=== PATIENT | male | born 1970 | race American Indian/Alaskan Native ===

== ENCOUNTER 2018-08-18 19:32 | Emergency (ER) | payer MEDICAID ==
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
[2018-08-18 21:22] LABS: Basophils # (Auto) 0.1 K/mm3 (0.0-0.1); Basophils % (Auto) 1.3 % (0.0-1.8); Eosinophils % (Auto) 0.4 % (0.0-4.3); Hematocrit 40.3 % (35.5-45.6); Hemoglobin 13.5 gm/dl (11.8-15.2); Lymphocytes # (Auto) 2.9 K/mm3 (1.2-5.4); Mean Corpuscular HGB Conc 34 % (32-34); Mean Corpuscular Hemoglobin 31 pg (28-32); Mean Corpuscular Volume 93 fl (84-94); Monocytes # (Auto) 0.6 K/mm3 (0.0-0.8); Monocytes % (Auto) 9.8 % (0.0-7.3); Platelet Count 197 K/mm3 (140-440); Red Blood Count 4.33 M/mm3 (3.65-5.03); Red Cell Distribution Width 14.6 % (13.2-15.2)
--- NOTE | 2018-08-18 21:23 | Cat Scan Report ---
FINAL REPORT EXAM: CT HEAD/BRAIN WO CON HISTORY: head injury TECHNIQUE: 2.5 millimeter axial images from the skullbase to the vertex. Comparison: None FINDINGS: There is no evidence of an acute intracranial process, intracranial hemorrhage or mass effect. The ventricles are normal size. The visualized portions of the orbits, paranasal and mastoid sinuses are notable for deformity of the medial wall of the left orbit without evidence of acute change in the adjacent ethmoid sinus. This may represent sequela of previous medial orbital wall fracture or may be congenital in nature. There is no evidence of acute fracture. IMPRESSION: 1. No evidence of an acute intracranial process, intracranial hemorrhage or mass effect. 2. Deformity medial wall left orbit that may represent sequela of previous medial orbital wall fracture or may be congenital in nature. 3. No evidence of acute fracture.
[2018-08-18 21:37] LABS: Bilirubin,Urine NEG (Negative); Blood,Urine NEG (Negative); Color,Urine Yellow (Yellow); Mucus,Urine FEW /HPF; Protein,Urine <15 mg/dL mg/dL (Negative)
[2018-08-18 21:39] LABS: BUN/Creatinine Ratio 9; Blood Urea Nitrogen 10 mg/dL (9-20); Calcium 9.6 mg/dL (8.4-10.2); Hemolysis Index 5
[2018-08-18 21:54] LABS: Amphetamine Screen,Urine PRESUMPTIVE NEGATIVE; Benzodiazepines Screen,Urine PRESUMPTIVE NEGATIVE; Cannabinoid Screen,Urine PRESUMPTIVE NEGATIVE; Cocaine Screen,Urine PRESUMPTIVE NEGATIVE; Methadone Screen,Urine PRESUMPTIVE NEGATIVE; Opiate Screen,Urine PRESUMPTIVE NEGATIVE
[2018-08-19] MEDS ORDERED: TYLENOL PO ONE (01:10)
[2018-08-19 02:08] VITALS: BP 137/86
== END 2018-08-19 03:00 | disposition home or self-care (01) ==
LOC: ED 19:32
DX: F31.9 Bipolar disorder, unspecified (principal); F20.9 Schizophrenia, unspecified; I11.0 Hypertensive heart disease with heart failure; F17.200 Nicotine dependence, unspecified, uncomplicated
CPT/HCPCS: 36415; 70450; 80048; 80307; 81001; 84484; 85025; 93005; 93010; 99284; G0480; 80320

== ENCOUNTER 2018-08-20 05:51 | Emergency (ER) | payer MEDICAID ==
[2018-08-20 06:11] VITALS: BP 123/82
== END 2018-08-20 07:41 | disposition left against medical advice (07) ==
LOC: ED 05:51
DX: R41.82 Altered mental status, unspecified (principal); Z53.21 Procedure and treatment not carried out due to patient leaving prior to being seen by health care provider

== ENCOUNTER 2022-03-24 02:56 | Emergency (ER) | payer MEDICAID ==
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
[2022-03-24 04:38] LABS: Hematocrit 45.8 % (35.5-45.6); Mean Corpuscular HGB Conc 33 % (32-34); Mean Corpuscular Volume 94 fl (84-94); Platelet Count 289 K/mm3 (140-440); Red Cell Distribution Width 14.7 % (13.2-15.2)
[2022-03-24 04:58] LABS: BUN/Creatinine Ratio 12; Blood Urea Nitrogen 12 mg/dL (9-20); Hemolysis Index 9
[2022-03-24 05:33] LABS: Basophils % (Manual) 0 % (0.0-1.8); Eosinophils % (Manual) 0 % (0.0-4.3); Total Cells Counted 100
[2022-03-24 05:34] LABS: Large Platelets Few; Platelet Estimate Cons
[2022-03-24 05:52] LABS: Bilirubin,Urine SM (Negative); Blood,Urine NEG (Negative); Color,Urine Amber (Yellow); Mucus,Urine 3+ /HPF; WBC,Urine < 1.0 /HPF (0.0-6.0)
[2022-03-24 05:54] LABS: Amphetamine Screen,Urine Negative; Benzodiazepines Screen,Urine Negative; Cannabinoid Screen,Urine Negative; Cocaine Screen,Urine Negative; Methadone Screen,Urine Negative; Opiate Screen,Urine Negative
[2022-03-24 05:57] LABS: Ictotest,Urine Positive (Negative)
[2022-03-24] MEDS ORDERED: IBUPROFEN 800 MG TAB PO ONE (06:53)
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
[2022-03-24] MEDS ORDERED: NON-FORMULARY EACH (Buspirone Hcl [Buspirone] 15 MG Tablet) PO SCH (11:00)
[2022-03-24] MEDS: DIVALPROEX DR 250 MG TAB PO SCH ×2 (11:08→22:06)
[2022-03-24] MEDS: QUEtiapine 100 MG TAB PO SCH ×2 (11:08→22:00)
[2022-03-24] MEDS ORDERED: busPIRone 5 MG TAB PO SCH (22:00)
[2022-03-24] MEDS ORDERED: busPIRone 10 MG TAB PO SCH (22:00)
--- NOTE | 2022-03-25 09:05 | Progress Note ---
Subjective - Reason for Consult Consult date: 03/25/22 Reason for consult: psychosis - Chief Complaint Chief complaint: Per nurse note: Pt was alert and oriented x2-3, visible on the unit. Pt was seen responding to internal stimuli, talking to self and to other people who are not there. Pt was compliant with his scheduled medications. Pt ate all his meals. The patient was seen today. He is loud, hyperverbal and his speech is pressured. He is having flight of ideas. The nursing staff says the patient has been talking non-stop. He is difficult to follow and at times talking nonsensically. He says he's "doing alright" when asked. he says "it's too much going on in my house." The patient then starts talking about "when it's time for a human to leave out this world, only God knows. But write this down, because you can write a book." He tells me that his leg does not bend the way it's supposed to. The patient says "I remember you. I seen you on t.v. Some of these other folks I seen on t.v. too." He denies SI/HI. He then says "it doesn't make no difference if I live or . I can leave today." Will adjust the patient's medications. REVIEW OF SYSTEMS Constitutional: Negative for weight loss ENT: Negative for stridor Respiratory: Negative for cough or hemoptysis All other systems reviewed and are negative MENTAL STATUS EXAMINATION General Appearance and Behavior: Age appropriate, good hygiene, wearing appropriate clothes. anxious, cooperative Cooperation: Cooperative Psychomotor Behavior: Psychomotor normal Mood: not good Affect and affective range: congruent with stated mood Thought Process: illogical, flight of ideas Thought Content: hallucinations, delusions Speech: pressured, hyperverbal Suicidal Ideation: Unclear Homicidal Ideation: Denies Hallucinations: A/V Delusions: None elicited Impulse Control: Limited Insight and Judgment: Limited insight and fair judgment Memory: Limited Attention: attentive Orientation: a/o x 3 Assessment (1) Schizoaffective Disorder Treatment Plan Increase Seroquel 150mg po BID Increase Buspar 15mg po TID Increase Depakote DR 250mg po TID Start Trazodone 75mg po qhs Medical: per primary Disposition: Recommend acute psychiatric inpatient treatment. Will follow. Thanks Case staffed with Dr. Saul Mental Status Exam - Vital signs Last Vital Signs Temp 98.5 F 03/24/22 04:06 Pulse 66 03/24/22 04:06 Resp 16 03/24/22 04:06 BP 128/83 03/24/22 04:06 Pulse Ox 100 03/24/22 19:00
[2022-03-25] MEDS ORDERED: QUEtiapine 100 MG TAB PO SCH (09:11)
[2022-03-25] MEDS: QUEtiapine 100 MG TAB PO SCH ×2 (10:26→22:48)
[2022-03-25] MEDS: QUEtiapine 25 MG TAB PO SCH ×2 (10:26→22:48)
--- NOTE | 2022-03-25 12:36 | Emergency Department Report ---
Blank Doc - Documentation Documentation: Chart reviewed 51-year-old male with schizoaffective disorder currently on a 1013. Currently awaiting placement. Medication adjusted by mental health nurse practitioner. Vital signs reviewed
[2022-03-25] MEDS ORDERED: busPIRone 10 MG TAB PO SCH (14:00)
[2022-03-25] MEDS: DIVALPROEX DR 250 MG TAB PO SCH ×2 (15:47→20:06)
[2022-03-25] MEDS: busPIRone 5 MG TAB PO SCH ×2 (15:47→20:06)
[2022-03-25] MEDS ORDERED: ZIPRASIDONE MESYLATE 20 MG VIAL IM ONE (19:14)
[2022-03-25] MEDS ORDERED: traZODone 50 MG TAB PO SCH (22:00)
[2022-03-26] MEDS ORDERED: ACETAMINOPHEN 500 MG TAB PO ONE (00:45)
[2022-03-26] MEDS: DIVALPROEX DR 250 MG TAB PO SCH (08:34)
[2022-03-26] MEDS: busPIRone 5 MG TAB PO SCH (08:34)
[2022-03-26 09:06] VITALS: BP 146/86
[2022-03-26] MEDS: QUEtiapine 100 MG TAB PO SCH (10:03)
[2022-03-26] MEDS: QUEtiapine 25 MG TAB PO SCH (10:03)
--- NOTE | 2022-03-26 10:45 | Progress Note ---
Subjective - Reason for Consult Consult date: 03/26/22 Reason for consult: delusional - Chief Complaint Chief complaint: The patient was seen today. He is calm, and cooperative. He is a lot less talkative today. The patient asks if he could go home and states "ma'am I feel much better today." He says "I have an appointment on April 12 at [facility] for my mental health." He denies SI/HI or hallucinations of any kind. The nursing staff states the patient has been calm and cooperative. REVIEW OF SYSTEMS Constitutional: Negative for weight loss ENT: Negative for stridor Respiratory: Negative for cough or hemoptysis All other systems reviewed and are negative MENTAL STATUS EXAMINATION General Appearance and Behavior: Age appropriate, good hygiene, wearing appropriate clothes. calm, cooperative, polite Cooperation: Cooperative Psychomotor Behavior: Psychomotor normal Mood: much better Affect and affective range: congruent with stated mood Thought Process: logical Thought Content: None Speech: Normal tone and pace Suicidal Ideation: Denies Homicidal Ideation: Denies Hallucinations: Denies Delusions: None elicited Impulse Control: Limited Insight and Judgment: Limited insight and fair judgment Memory: Limited Attention: attentive Orientation: a/o x 3 Assessment (1) Schizoaffective Disorder Treatment Plan d/c 1013 Seroquel 150mg po BID Buspar 15mg po TID Depakote DR 250mg po TID Trazodone 75mg po qhs Medical: per primary Disposition: Do not recommend acute psychiatric inpatient treatment. The patient understands if SI/HI or any fear of endangerment arise he is to seek immediate assistance [employer] Operator to give all necessary resources The patient to follow up with outpatient psych in 7 to 14 days upon discharge Will sign off. Thanks Case staffed with Dr. Saul Mental Status Exam - Vital signs Last Vital Signs Temp 98.2 F 03/26/22 09:05 Pulse 63 03/26/22 09:05 Resp 18 03/26/22 09:05 BP 146/86 03/26/22 09:05 Pulse Ox 98 03/26/22 09:06
== END 2022-03-26 12:28 | disposition home or self-care (01) ==
LOC: ED 02:56
DX: F29 Unspecified psychosis not due to a substance or known physiological condition (principal); I11.0 Hypertensive heart disease with heart failure; I50.9 Heart failure, unspecified; F17.200 Nicotine dependence, unspecified, uncomplicated; Z79.899 Other long term (current) drug therapy; Z20.822 Contact with and (suspected) exposure to COVID-19
CPT/HCPCS: 36415; 80048; 80307; 81001; 85007; 85025; 99284; J3486; U0003; 80320; 96372; G0480

== ENCOUNTER 2022-03-27 01:18 | Emergency (ER) | payer MEDICAID ==
[2022-03-27 02:19] LABS: Bilirubin,Urine NEG (Negative); Blood,Urine NEG (Negative); Color,Urine Colorless (Yellow); Protein,Urine <15 mg/dL mg/dL (Negative); Urobilinogen,Urine < 2.0 mg/dL (<2.0)
[2022-03-27 02:45] LABS: RBC,Urine < 1.0 /HPF (0.0-6.0); WBC,Urine < 1.0 /HPF (0.0-6.0)
[2022-03-27 02:47] LABS: Amphetamine Screen,Urine PRESUMPTIVE NEGATIVE; Benzodiazepines Screen,Urine PRESUMPTIVE NEGATIVE; Cannabinoid Screen,Urine PRESUMPTIVE NEGATIVE; Cocaine Screen,Urine PRESUMPTIVE NEGATIVE; Methadone Screen,Urine PRESUMPTIVE NEGATIVE; Opiate Screen,Urine PRESUMPTIVE NEGATIVE
[2022-03-27 04:18] LABS: Basophils # (Auto) 0.1 K/mm3 (0.0-0.1); Basophils % (Auto) 1.2 % (0.0-1.8); Eosinophils % (Auto) 0.7 % (0.0-4.3); Hematocrit 42.1 % (35.5-45.6); Lymphocytes # (Auto) 2.9 K/mm3 (1.2-5.4); Lymphocytes % (Auto) 48.5 % (13.4-35.0); Mean Corpuscular HGB Conc 33 % (32-34); Mean Corpuscular Volume 94 fl (84-94); Monocytes # (Auto) 0.5 K/mm3 (0.0-0.8); Monocytes % (Auto) 8.9 % (0.0-7.3); Red Blood Count 4.51 M/mm3 (3.65-5.03); Red Cell Distribution Width 14.7 % (13.2-15.2)
[2022-03-27 04:27] LABS: Platelet Count 214 K/mm3 (140-440)
[2022-03-27 04:30] LABS: BUN/Creatinine Ratio 16; Blood Urea Nitrogen 13 mg/dL (9-20); Calcium 8.9 mg/dL (8.4-10.2); Hemolysis Index 6
--- NOTE | 2022-03-27 09:28 | Emergency Department Report ---
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 [Primary Care Provider] - 3-5 Days
[2022-03-27 10:11] LABS: Hematocrit 41.5 % (35.5-45.6); Hemoglobin 13.8 gm/dl (11.8-15.2); Mean Corpuscular HGB Conc 33 % (32-34); Mean Corpuscular Volume 93 fl (84-94); Platelet Count 219 K/mm3 (140-440); Red Blood Count 4.45 M/mm3 (3.65-5.03); Red Cell Distribution Width 14.6 % (13.2-15.2)
[2022-03-27 10:13] LABS: BUN/Creatinine Ratio 15; Blood Urea Nitrogen 12 mg/dL (9-20); Calcium 9.5 mg/dL (8.4-10.2); Hemolysis Index 13
--- NOTE | 2022-03-27 11:08 | Progress Note ---
Subjective - Reason for Consult Consult date: 03/27/22 Reason for consult: MHE - Chief Complaint Chief complaint: The patient was seen today. He was treated and cleared by psych after several days. At that time the patient expressed feeling better. He states he filled his scripts but didn't start his medication. He says "I dropped them off at [facility]." The patient appears to be dissatisfied with his living situation. The patient says "I have problems. People are coming in my house." The patient also says he doesn't like his landlord, his brother or his brother's . He denies SI/HI or hallucinations of any kind. He says "nothing like that, but I don't understand what's going on at my house." REVIEW OF SYSTEMS Constitutional: Negative for weight loss ENT: Negative for stridor Respiratory: Negative for cough or hemoptysis All other systems reviewed and are negative MENTAL STATUS EXAMINATION General Appearance and Behavior: Age appropriate, good hygiene, wearing appropriate clothes. cooperative Cooperation: Cooperative Psychomotor Behavior: Psychomotor normal Mood: not good Affect and affective range: congruent with stated mood Thought Process: circumstantial Thought Content: None Speech: rambling at time Suicidal Ideation: Denies Homicidal Ideation: Denies Hallucinations: Denies Delusions: None elicited Impulse Control: Limited Insight and Judgment: Limited insight and fair judgment Memory: Limited Attention: attentive Orientation: a/o x 3 Assessment (1) Schizoaffective Disorder Treatment Plan Continue meds prescribed previously Medical: per primary Disposition: Do not recommend acute psychiatric inpatient treatment. The patient understands if SI/HI or any fear of endangerment arise he is to seek immediate assistance Head Stock Operator to give all necessary resources The patient to follow up with outpatient psych in 7 to 14 days upon discharge Will sign off. Thanks Case staffed with Dr. Saul Mental Status Exam - Vital signs Last Vital Signs Temp 98.4 F 03/27/22 01:25 Pulse 114 H 03/27/22 01:25 Resp 16 03/27/22 10:51 BP 141/92 03/27/22 01:25 Pulse Ox 98 03/27/22 10:51
[2022-03-27 11:21] LABS: Bilirubin,Urine NEG (Negative); Blood,Urine NEG (Negative); Color,Urine Yellow (Yellow); Mucus,Urine FEW /HPF; Protein,Urine <15 mg/dL mg/dL (Negative); WBC,Urine < 1.0 /HPF (0.0-6.0)
[2022-03-27 11:29] LABS: Amphetamine Screen,Urine Negative; Benzodiazepines Screen,Urine Negative; Cannabinoid Screen,Urine Negative; Cocaine Screen,Urine Negative; Methadone Screen,Urine Negative; Opiate Screen,Urine Negative
[2022-03-27 11:35] LABS: RBC,Urine < 1.0 /HPF (0.0-6.0)
[2022-03-27 11:38] LABS: Total Cells Counted 100
[2022-03-27 11:39] LABS: Giant Platelets Few; Platelet Estimate Cons
[2022-03-27] MEDS ORDERED: ZIPRASIDONE MESYLATE 20 MG VIAL IM ONE ×2 (12:39→12:50)
[2022-03-27] MEDS ORDERED: diphenhydrAMINE 50 MG/ML VIAL IM ONE (12:39)
[2022-03-27] MEDS ORDERED: diphenhydrAMINE 50 MG/ML VIAL IV ONE (12:50)
[2022-03-27] MEDS: DIVALPROEX DR 250 MG TAB PO SCH (21:00)
[2022-03-27] MEDS: busPIRone 5 MG TAB PO SCH (21:00)
[2022-03-27] MEDS ORDERED: QUEtiapine 100 MG TAB PO SCH (22:00)
[2022-03-27] MEDS: QUEtiapine 100 MG TAB PO SCH (22:00)
[2022-03-27] MEDS ORDERED: traZODone 50 MG TAB PO SCH (22:00)
[2022-03-27] MEDS: QUEtiapine 25 MG TAB PO SCH (22:00)
[2022-03-28] MEDS ORDERED: LISINOPRIL 20 MG TAB PO SCH (10:00)
[2022-03-28] MEDS: DIVALPROEX DR 250 MG TAB PO SCH (11:52)
[2022-03-28] MEDS: busPIRone 5 MG TAB PO SCH (11:52)
[2022-03-28] MEDS: QUEtiapine 100 MG TAB PO SCH (11:52)
[2022-03-28] MEDS: QUEtiapine 25 MG TAB PO SCH (11:52)
--- NOTE | 2022-03-28 12:13 | Event Note ---
Date: 03/28/22 Patient here / not liking his living situation. Patient with hx of schizoaffective disorder. Had been cleared by psych yesterday but became agit ated and angry just prior to discharge. was held for re-eval. Psych re-evaluated him today and cleared him. Denies SI, HI. ED Physical Exam - General Limitations: No Limitations General appearance: alert, in no apparent distress - Head Head exam: Present: atraumatic, normocephalic - Eye Eye exam: Present: PERRL, EOMI - ENT ENT exam: Present: mucous membranes moist, other (airway patent) - Neck Neck exam: Present: other (supple; no JVD) - Respiratory Respiratory exam: Present: other (good air entry, nml I:E, CTAB, no use of ELIDA) - Cardiovascular Cardiovascular Exam: Absent: rubs, gallop - GI/Abdominal GI/Abdominal exam: Present: soft, normal bowel sounds. Absent: distended, tenderness - Extremities Exam Extremities exam: Present: full ROM. Absent: tenderness - Back Exam Back exam: Present: full ROM. Absent: tenderness - Neurological Exam Neurological exam: Present: alert, oriented X3, CN II-XII intact. Absent: motor sensory deficit - Psychiatric Psychiatric exam: Present: normal affect, other (no obvious hallucinations or delusions). Absent: homicidal ideation, suicidal ideation - Skin Skin exam: Present: warm, intact ED Medical Decision Making - Lab Data Result diagrams: 03/27/22 09:47 03/27/22 09:47 Laboratory Tests 03/27/22 03/27/22 03/27/22 03:41 03:41 03:41 WBC RBC Hgb Hct MCV MCH MCHC RDW Plt Count Lymph % (Auto) [place] % (Auto) Eos % (Auto) Baso % (Auto) Lymph # (Auto) [place] # (Auto) Eos # (Auto) Baso # (Auto) Add Manual Diff Total Counted Seg Neutrophils % Seg Neuts % (Manual) Band Neutrophils % Lymphocytes % (Manual) Reactive Lymphs % (Man) Monocytes % (Manual) Eosinophils % (Manual) Basophils % (Manual) Metamyelocytes % Myelocytes % Promyelocytes % Blast Cells % Nucleated RBC % Seg Neutrophils # Seg Neutrophils # Man Band Neutrophils # Lymphocytes # (Manual) Abs React Lymphs (Man) Monocytes # (Manual) Eosinophils # (Manual) Basophils # (Manual) Metamyelocytes # Myelocytes # Promyelocytes # Blast Cells # WBC Morphology Hypersegmented Neuts Hyposegmented Neuts Hypogranular Neuts Smudge Cells Toxic Granulation Toxic Vacuolation Dohle Bodies Pelger-Huet Anomaly Berna Rods Platelet Estimate Clumped Platelets Plt Clumps, EDTA Large Platelets Giant Platelets Platelet Satelliting Plt Morphology Comment RBC Morphology Dimorphic RBCs Polychromasia Hypochromasia Poikilocytosis Anisocytosis Microcytosis Macrocytosis Spherocytes Pappenheimer Bodies Sickle Cells Target Cells Tear Drop Cells Ovalocytes Helmet Cells [place] Bodies Jolo Rings Maidens Cells Bite Cells Crenated Cell Elliptocytes Acanthocytes (Spur) Rouleaux Hemoglobin C Crystals Schistocytes Malaria parasites Eduard Bodies Hem Pathologist Commnt Sodium 144 Potassium 3.8 Chloride 106.7 Carbon Dioxide 26 Anion Gap 15 BUN 13 Creatinine 0.8 Estimated GFR > 60 BUN/Creatinine Ratio 16 Glucose 116 H Calcium 8.9 Urine Color Urine Turbidity Urine pH Ur Specific Philo Urine Protein Urine Glucose (UA) Urine Ketones Urine Blood Urine Nitrite Urine Bilirubin Urine Urobilinogen Ur Leukocyte Esterase Urine WBC (Auto) Urine RBC (Auto) U Epithel Cells (Auto) Urine Mucus Salicylates < 0.3 L Urine Opiates Screen Urine Methadone Screen Acetaminophen 5.0 L Ur Barbiturates Screen Ur Phencyclidine Scrn Ur Amphetamines Screen U Benzodiazepines Scrn Urine Cocaine Screen U Marijuana (THC) Screen Drugs of Abuse Note Plasma/Serum Alcohol Coronavirus (PCR) 03/27/22 03/27/22 03/27/22 03:41 03:41 09:47 WBC 6.1 RBC 4.51 Hgb 14.0 Hct 42.1 MCV 94 MCH 31 MCHC 33 RDW 14.7 Plt Count 214 Lymph % (Auto) 48.5 H [place] % (Auto) 8.9 H Eos % (Auto) 0.7 Baso % (Auto) 1.2 Lymph # (Auto) 2.9 [place] # (Auto) 0.5 Eos # (Auto) 0.0 Baso # (Auto) 0.1 Add Manual Diff Total Counted Seg Neutrophils % 40.7 Seg Neuts % (Manual) Band Neutrophils % Lymphocytes % (Manual) Reactive Lymphs % (Man) Monocytes % (Manual) Eosinophils % (Manual) Basophils % (Manual) Metamyelocytes % Myelocytes % Promyelocytes % Blast Cells % Nucleated RBC % Seg Neutrophils # 2.5 Seg Neutrophils # Man Band Neutrophils # Lymphocytes # (Manual) Abs React Lymphs (Man) Monocytes # (Manual) Eosinophils # (Manual) Basophils # (Manual) Metamyelocytes # Myelocytes # Promyelocytes # Blast Cells # WBC Morphology Hypersegmented Neuts Hyposegmented Neuts Hypogranular Neuts Smudge Cells Toxic Granulation Toxic Vacuolation Dohle Bodies Pelger-Huet Anomaly Berna Rods Platelet Estimate Clumped Platelets Plt Clumps, EDTA Large Platelets Giant Platelets Platelet Satelliting Plt Morphology Comment RBC Morphology Dimorphic RBCs Polychromasia Hypochromasia Poikilocytosis Anisocytosis Microcytosis Macrocytosis Spherocytes Pappenheimer Bodies Sickle Cells Target Cells Tear Drop Cells Ovalocytes Helmet Cells [place] Bodies Jolo Rings Maidens Cells Bite Cells Crenated Cell Elliptocytes Acanthocytes (Spur) Rouleaux Hemoglobin C Crystals Schistocytes Malaria parasites Eduard Bodies Hem Pathologist Commnt Sodium Potassium Chloride Carbon Dioxide Anion Gap BUN Creatinine Estimated GFR BUN/Creatinine Ratio Glucose Calcium Urine Color Urine Turbidity Urine pH Ur Specific [place] Urine Protein Urine Glucose (UA) Urine Ketones Urine Blood Urine Nitrite Urine Bilirubin Urine Urobilinogen Ur Leukocyte Esterase Urine WBC (Auto) Urine RBC (Auto) U Epithel Cells (Auto) Urine Mucus Salicylates < 0.3 L Urine Opiates Screen Urine Methadone Screen Acetaminophen Ur Barbiturates Screen Ur Phencyclidine Scrn Ur Amphetamines Screen U Benzodiazepines Scrn Urine Cocaine Screen U Marijuana (THC) Screen Drugs of Abuse Note Plasma/Serum Alcohol < 0.01 Coronavirus (PCR) 03/27/22 03/27/22 03/27/22 09:47 09:47 09:47 WBC RBC Hgb Hct MCV MCH MCHC RDW Plt Count Lymph % (Auto) [place] % (Auto) Eos % (Auto) Baso % (Auto) Lymph # (Auto) [place] # (Auto) Eos # (Auto) Baso # (Auto) Add Manual Diff Total Counted Seg Neutrophils % Seg Neuts % (Manual) Band Neutrophils % Lymphocytes % (Manual) Reactive Lymphs % (Man) Monocytes % (Manual) Eosinophils % (Manual) Basophils % (Manual) Metamyelocytes % Myelocytes % Promyelocytes % Blast Cells % Nucleated RBC % Seg Neutrophils # Seg Neutrophils # Man Band Neutrophils # Lymphocytes # (Manual) Abs React Lymphs (Man) Monocytes # (Manual) Eosinophils # (Manual) Basophils # (Manual) Metamyelocytes # Myelocytes # Promyelocytes # Blast Cells # WBC Morphology Hypersegmented Neuts Hyposegmented Neuts Hypogranular Neuts Smudge Cells Toxic Granulation Toxic Vacuolation Dohle Bodies Pelger-Huet Anomaly Berna Rods Platelet Estimate Clumped Platelets Plt Clumps, EDTA Large Platelets Giant Platelets Platelet Satelliting Plt Morphology Comment RBC Morphology Dimorphic RBCs Polychromasia Hypochromasia Poikilocytosis Anisocytosis Microcytosis Macrocytosis Spherocytes Pappenheimer Bodies Sickle Cells Target Cells Tear Drop Cells Ovalocytes Helmet Cells [place] Bodies Jolo Rings Zully Cells Bite Cells Crenated Cell Elliptocytes Acanthocytes (Spur) Rouleaux Hemoglobin C Crystals Schistocytes Malaria parasites Eduard Bodies Hem Pathologist Commnt Sodium 142 Potassium 3.6 Chloride 105.7 Carbon Dioxide 27 Anion Gap 13 BUN 12 Creatinine 0.8 Estimated GFR > 60 BUN/Creatinine Ratio 15 Glucose 101 H Calcium 9.5 Urine Color Urine Turbidity Urine pH Ur Specific Philo Urine Protein Urine Glucose (UA) Urine Ketones Urine Blood Urine Nitrite Urine Bilirubin Urine Urobilinogen Ur Leukocyte Esterase Urine WBC (Auto) Urine RBC (Auto) U Epithel Cells (Auto) Urine Mucus Salicylates Urine Opiates Screen Urine Methadone Screen Acetaminophen 5.0 L Ur Barbiturates Screen Ur Phencyclidine Scrn Ur Amphetamines Screen U Benzodiazepines Scrn Urine Cocaine Screen U Marijuana (THC) Screen Drugs of Abuse Note Plasma/Serum Alcohol < 0.01 Coronavirus (PCR) 03/27/22 03/27/22 03/27/22 09:47 10:45 10:45 WBC 4.6 RBC 4.45 Hgb 13.8 Hct 41.5 MCV 93 MCH 31 MCHC 33 RDW 14.6 Plt Count 219 Lymph % (Auto) Dry Cure Worker [place] % (Auto) Eos % (Auto) Baso % (Auto) Lymph # (Auto) [place] # (Auto) Eos # (Auto) Baso # (Auto) Add Manual Diff Complete Total Counted 100 Seg Neutrophils % Dry Cure Worker Seg Neuts % (Manual) 30.0 L Band Neutrophils % 0 Lymphocytes % (Manual) 56.0 H Reactive Lymphs % (Man) 0 Monocytes % (Manual) 12.0 H Eosinophils % (Manual) 1.0 Basophils % (Manual) 1.0 Metamyelocytes % 0 Myelocytes % 0 Promyelocytes % 0 Blast Cells % 0 Nucleated RBC % Not Reportable Seg Neutrophils # Seg Neutrophils # Man 1.4 L Band Neutrophils # 0.0 Lymphocytes # (Manual) 2.6 Abs React Lymphs (Man) 0.0 Monocytes # (Manual) 0.6 Eosinophils # (Manual) 0.0 Basophils # (Manual) 0.0 Metamyelocytes # 0.0 Myelocytes # 0.0 Promyelocytes # 0.0 Blast Cells # 0.0 WBC Morphology Not Reportable Hypersegmented Neuts Not Reportable Hyposegmented Neuts Not Reportable Hypogranular Neuts Not Reportable Smudge Cells Not Reportable Toxic Granulation Not Reportable Toxic Vacuolation Not Reportable Dohle Bodies Not Reportable Pelger-Huet Anomaly Not Reportable Berna Rods Not Reportable Platelet Estimate Cons Clumped Platelets Not Reportable Plt Clumps, EDTA Not Reportable Large Platelets Not Reportable Giant Platelets Few Platelet Satelliting Not Reportable Plt Morphology Comment Not Reportable RBC Morphology Not Reportable Dimorphic RBCs Not Reportable Polychromasia Not Reportable Hypochromasia Not Reportable Poikilocytosis Not Reportable Anisocytosis Not Reportable Microcytosis Not Reportable Macrocytosis Not Reportable Spherocytes Not Reportable Pappenheimer Bodies Not Reportable Sickle Cells Not Reportable Target Cells Not Reportable Tear Drop Cells Not Reportable Ovalocytes Not Reportable Helmet Cells Not Reportable [place] Bodies Not Reportable Jolo Rings Not Reportable Zully Cells Not Reportable Bite Cells Not Reportable Crenated Cell Not Reportable Elliptocytes Not Reportable Acanthocytes (Spur) Not Reportable Rouleaux Not Reportable Hemoglobin C Crystals Not Reportable Schistocytes Not Reportable Malaria parasites Not Reportable Eduard Bodies Not Reportable Hem Pathologist Commnt No Sodium Potassium Chloride Carbon Dioxide Anion Gap BUN Creatinine Estimated GFR BUN/Creatinine Ratio Glucose Calcium Urine Color Yellow Urine Turbidity Clear Urine pH 5.0 Ur Specific Philo 1.025 Urine Protein <15 mg/dl Urine Glucose (UA) Neg Urine Ketones Tr Urine Blood Neg Urine Nitrite Neg Urine Bilirubin Neg Urine Urobilinogen 2.0 Ur Leukocyte Esterase Neg Urine WBC (Auto) < 1.0 Urine RBC (Auto) < 1.0 U Epithel Cells (Auto) < 1.0 Urine Mucus Few Salicylates Urine Opiates Screen Negative Urine Methadone Screen Negative Acetaminophen Ur Barbiturates Screen Negative Ur Phencyclidine Scrn Negative Ur Amphetamines Screen Negative U Benzodiazepines Scrn Negative Urine Cocaine Screen Negative U Marijuana (THC) Screen Negative Drugs of Abuse Note Disclamer Plasma/Serum Alcohol Coronavirus (PCR) 03/27/22 03/27/22 03/27/22 Unknown Unknown Unknown WBC RBC Hgb Hct MCV MCH MCHC RDW Plt Count Lymph % (Auto) [place] % (Auto) Eos % (Auto) Baso % (Auto) Lymph # (Auto) [place] # (Auto) Eos # (Auto) Baso # (Auto) Add Manual Diff Total Counted Seg Neutrophils % Seg Neuts % (Manual) Band Neutrophils % Lymphocytes % (Manual) Reactive Lymphs % (Man) Monocytes % (Manual) Eosinophils % (Manual) Basophils % (Manual) Metamyelocytes % Myelocytes % Promyelocytes % Blast Cells % Nucleated RBC % Seg Neutrophils # Seg Neutrophils # Man Band Neutrophils # Lymphocytes # (Manual) Abs React Lymphs (Man) Monocytes # (Manual) Eosinophils # (Manual) Basophils # (Manual) Metamyelocytes # Myelocytes # Promyelocytes # Blast Cells # WBC Morphology Hypersegmented Neuts Hyposegmented Neuts Hypogranular Neuts Smudge Cells Toxic Granulation Toxic Vacuolation Dohle Bodies Pelger-Huet Anomaly Berna Rods Platelet Estimate Clumped Platelets Plt Clumps, EDTA Large Platelets Giant Platelets Platelet Satelliting Plt Morphology Comment RBC Morphology Dimorphic RBCs Polychromasia Hypochromasia Poikilocytosis Anisocytosis Microcytosis Macrocytosis Spherocytes Pappenheimer Bodies Sickle Cells Target Cells Tear Drop Cells Ovalocytes Helmet Cells [place] Bodies Jolo Rings Zully Cells Bite Cells Crenated Cell Elliptocytes Acanthocytes (Spur) Rouleaux Hemoglobin C Crystals Schistocytes Malaria parasites Eduard Bodies Hem Pathologist Commnt Sodium Potassium Chloride Carbon Dioxide Anion Gap BUN Creatinine Estimated GFR BUN/Creatinine Ratio Glucose Calcium Urine Color Colorless Urine Turbidity Clear Urine pH 7.0 Ur Specific Phil[place] 1.003 Urine Protein <15 mg/dl Urine Glucose (UA) Neg Urine Ketones Neg Urine Blood Neg Urine Nitrite Neg Urine Bilirubin Neg Urine Urobilinogen < 2.0 Ur Leukocyte Esterase Neg Urine WBC (Auto) < 1.0 Urine RBC (Auto) < 1.0 U Epithel Cells (Auto) Urine Mucus Salicylates Urine Opiates Screen Presumptive negative Urine Methadone Screen Presumptive negative Acetaminophen Ur Barbiturates Screen Presumptive negative Ur Phencyclidine Scrn Presumptive negative Ur Amphetamines Screen Presumptive negative U Benzodiazepines Scrn Presumptive negative Urine Cocaine Screen Presumptive negative U Marijuana (THC) Screen Presumptive negative Drugs of Abuse Note Disclamer Plasma/Serum Alcohol Coronavirus (PCR) Negative - Medical Decision Making IMPRESSION: 1. Schizoaffective disorder ED Disposition Disposition: 01 HOME / SELF CARE / HOMELESS Is pt being admited?: No Does the pt Need Aspirin: No Condition: Stable Instructions: Psychosis Additional Instructions: Professional and Agency Contacts To help [facility](24/06) [place] Crisis Line: Suicide Prevention Line: Crisis Text Line: Text START to 223934 Emergency: 911 Outpatient COMMUNITY Behavioral Health Resources: [facility]: [facility] [address] [place], [place] [address] [facility] [address] [place] [address] [facility] - [address] [place] [address] Saturday thru Saturday - 8am - 5pm [facility] Address: [address] [place] [address] NICO[facility]: [facility] Address: [address] [place] [address] Saturday thru Saturday- 7am-2pm [facility] Address: [address] [place] [address] Saturday thru Saturday: 8:30AM-5PM [facility] [employer] [facility] [employer] goal is to take chronically homeless men and help them overcome their barriers, change them as human beings, making them productive and self- sufficient individuals. Each [employer] participant is housed at our facility for up to a year while they participate in transitional work (earning $7.40/hr for 30+ hours per week). All participants renounce dependency and remain drug and alcohol free. Personal support, case management, and workforce training is offered throughout the program. We also provide AA/NA Classes, GED classes, support in obtaining a haul truck driver's licenses, help setting up a bank account, and life skill preparation courses. IF A MAN IS COMMITTED TO BEING CLEAN, TO ADDRESSING THE PAST, AND TO WORKING, WE WILL HELP HIM GET A TURN DOWN ATTENDANT JOB, TRANSPORTATION AND PERMANENT HOUSING WITHIN A YEAR. [facility] [employer] [address] [place] [address] [email or web address] HOMELESS RESOURCES: [facility] NEED HELP? If you are in need of help or know someone who does, please contact us at [email or web address] or call , or come to our offices at [address] [place] [address], Saturday-Saturday beginning at 8AM. [facility] Males only Admission at 7am Sat to Sat Address: [address] [place] [address] Client Engagement Center [phone] Regular program admission occurs Saturday through Saturday at 7:00 am and operates on a first come, first serve basis. Because we cant anticipate program availabi lity in advance and program spots are in high demand, we recommend arriving early. Space fills up fast! Next steps can include: Assignment to a [facility] program bed Connection to and placement in a partner program, or Referral to a partner agency [facility] only Admission at 4:30pm daily Address: [address] [place] [address] [facility] Admission from 8am to 10am Daily No intake until 11/28/20 Address: [place] [address] Transitional Senior Living Providers: Mateusz Luke [phone] Address: [address] [place] [address] Lia Yadva [phone] [place] [address] Mr. Bryant: [phone] Cirilo Arana [phone] Ms. [place]: [phone] Marla Elmore [phone] Ms. Smith [phone] [place] [address] Ms. Arevalo: [phone] [facility] [phone] [facility] Home: [facility] [phone] PC Referrals: JOSE OCONNELL MD [Primary Care Provider] - 3-5 Days Time of Disposition: 12:15
[2022-03-28 12:40] VITALS: BP 133/96
== END 2022-03-28 12:58 | disposition home or self-care (01) ==
LOC: ED 01:18 → EEVIPCON 01:18 → ED 03-28 12:58
DX: F22 Delusional disorders (principal); R45.6 Violent behavior; R45.850 Homicidal ideations; Z13.30 Encounter for screening examination for mental health and behavioral disorders, unspecified; Z20.822 Contact with and (suspected) exposure to COVID-19; F17.200 Nicotine dependence, unspecified, uncomplicated; I10 Essential (primary) hypertension
CPT/HCPCS: 36415; 80048; 80307; 81001; 85007; 85025; 96372; 96374; 99285; J1200; J3486; U0003; 80320; G0480